=== PATIENT | female | born 2000 | race African-American/Black ===

== ENCOUNTER 2018-11-13 19:48 | Emergency (ER) | payer MEDICAID, OTHER ==
[~2018-11-13] VITALS: Ht 167.6 cm; Wt 102.0 kg
[2018-11-14] MEDS ORDERED: LIDOCAINE HCL 1% 20ML VIAL (Pyxis) INJ INFIL ONE (04:45)
[2018-11-14] MEDS ORDERED: HYDROCODONE/ACETAMINOPHEN 5/325MG TABLET PO ONE (04:45)
[2018-11-14] MEDS ORDERED: CEFTRIAXONE SODIUM 1 G/VIAL IM ONE (05:15)
[2018-11-14] MEDS ORDERED: BACITRACIN ZINC OINT UDPKT TOP ONE (05:45)
[2018-11-14 06:09] VITALS: BP 105/78
== END 2018-11-14 06:09 | disposition home or self-care (01) ==
LOC: ER 19:48
DX: L02.214 Cutaneous abscess of groin (principal); F12.10 Cannabis abuse, uncomplicated; F17.200 Nicotine dependence, unspecified, uncomplicated
CPT/HCPCS: 10060; 56405; 81025; 96372; 99284; J0696; J3490; Z7610; 99283